=== PATIENT | male | born 1955 | race Caucasian/White ===

== ENCOUNTER 2017-06-09 03:50 | Emergency (ER) | payer OTHER ==
[2017-06-09] MEDS: oxyCODONE/APAP 10/325 1 TAB TABLET PO ×2 (04:37)
== END 2017-06-09 04:49 | disposition home or self-care (01) ==
LOC: ER 03:50
DX: G89.29 Other chronic pain (principal); R10.30 Lower abdominal pain, unspecified; Z88.0 Allergy status to penicillin
CPT/HCPCS: 99282